=== PATIENT | female | born 1945 | race Caucasian/White ===

== ENCOUNTER 2017-12-26 12:06 | Outpatient (CLI) | payer MEDICARE ==
--- NOTE | 2017-12-26 13:21 | RAD ---
PA AND LATERAL VIEWS CHEST: HISTORY: Flu-like symptoms, cough, congestion, and fever. FINDINGS: There are changes of median sternotomy. The heart size is normal. The lungs are expanded without fo ruben areas of consolidation, pneumothorax, or pleural effusions. There are degenerative changes in th e spine. IMPRESSION: No radiographic evidence of acute cardiopulmonary process. POS: [facility]
== END 2017-12-26 12:07 | disposition home or self-care (01) ==
LOC: SCSRAD 12:06
PROVIDERS: ATTEND Family Medicine
DX: R68.89 Other general symptoms and signs (principal)
CPT/HCPCS: 71046

== ENCOUNTER 2018-03-07 08:10 | Inpatient (IN) | payer MEDICARE ==
[2018-03-07 08:32] LABS: #Eosinphils 0.1 thou/uL (0.0-0.7); #Lymphocytes 1.4 thou/uL (1.20-3.40); #Monocytes 0.6 thou/uL (0.11-0.59); #Neutrophils 7.2 thou/uL (1.40-6.50); %Basophils 0.5 % (0.0-1.0); %Eosinophils 0.8 % (0.0-10.0); %Lymphocytes 15.2 % (21.0-51.0); %Monocytes 6.1 % (0.0-10.0); %Neutrophils 77.5 % (42.0-75.0); Hemoglobin 13.1 g/dL (12.0-16.0); Mean Corpuscular HGB CONC 33.9 g/dL (32.0-36.0); Mean Corpuscular Volume 97.4 fL (78.0-98.0); Mean Platelet Volume 7.2 fL (7.4-10.4); Platelet Count 203 thou/uL (130-400); RBC Distribution Width 12.4 % (11.5-14.5); Red Blood Cell (RBC) Count 3.98 mill/uL (4.20-5.40); White Blood Cell (WBC) Count 9.3 thou/uL (4.8-10.8)
[2018-03-07] MEDS ORDERED: Ondansetron ODT 4 MG TAB ONE (08:34)
[2018-03-07] MEDS ORDERED: Nitroglycerin 2% Ointment 1 INCH/1 GM Packet ONE (08:37)
[2018-03-07 08:47] LABS: ALT (SGPT) 26 U/L (8-55); AST (SGOT) 34 U/L (5-34); Alkaline Phosphatase 54 U/L (40-150); Anion Gap 15 mmol/L (10-20); BUN (Urea Nitrogen) 22 mg/dL (9.8-20.1); Bilirubin, Total 0.6 mg/dL (0.2-1.2); Calc. Creatinine Clearance 0 mL/min (70-130); Calcium 10.4 mg/dL (7.8-10.44); Carbon Dioxide 26 mmol/L (23-31); Chloride 107 mmol/L (98-107); Estimated GFR-MDRD 48; Globulin 2.8 g/dL (2.4-3.5); Glucose 123 mg/dL (83-110); Potassium 4.6 mmol/L (3.5-5.1); Protein, Total 7.8 g/dL (6.0-8.3); Sodium 143 mmol/L (136-145)
[2018-03-07 08:51] LABS: Troponin I 0.111 ng/mL (< 0.028)
--- NOTE | 2018-03-07 09:47 | RAD ---
CHEST 1 VIEW: Date: 03/07/18 HISTORY: Irregular heartbeat. COMPARISON: 12/26/17. FINDINGS: Cardiac silhouette is magnified by projection. Pulmonary vasculature remains upper limits of normal. Mediastinum is midline with postoperative changes. No confluent air space consolidation or evidence o f pneumothorax. personnel monitor leads overlie the chest. IMPRESSION: Chronic-type findings are stable. No active cardiopulmonary abnormalities are demonstrated. POS: [facility]
[2018-03-07] MEDS ORDERED: Enoxaparin Sodium 80 MG/0.8 ML SYRINGE ONE (10:16)
--- NOTE | 2018-03-07 11:40 | CON ---
DATE OF CONSULTATION: 03/07/2018 REASON FOR CONSULTATION: Atrial fibrillation, rapid ventricular response. HISTORY OF PRESENT ILLNESS: Mrs. Sullivan is a very pleasant 72-year-old white female, patient of Dr. Andrew Kirk, who comes to the hospital for palpitations. She has woken up at midnight and noticed pa lpitations. She has had a history of paroxysmal atrial fibrillation. This is just the second episod e. She thought she had to wait it out. This morning, she remained in atrial fibrillation, so she de cided to come in for evaluation. She has since converted on her own back to sinus rhythm. She compl ained of some right shoulder pain as well, which she has had she tells me for the last week. It hurt s when she moves her shoulder, when she tries to reach on her back, when she tries to reach something with her right arm, it sounds like musculoskeletal pain. She denies any chest pain, tightness, pres sure. No shortness of breath. She has a significant cardiac history. She has had hypertrophic card iomyopathy, which was obstructive and required a septal myectomy. This was done in the year [address] Ian galvez in [place]. She did follow up with a nursing informatics analyst in [place] for a few years. She h as had stress testing before. At that time, she had this septal scar and defect consistent with her history of septal myectomy. She had a more recent stress test at Dr. Sears's office, her previous c ardiologist. This was in 2016 and it showed similar findings and no heart catheterization was done. This stress test was performed in the setting of having had her first admission for atrial fibrillat ion. At that time, she was recommended to be only on aspirin for stroke prophylaxis, which she has b een on ever since. On her last visit with Dr. Kirk, which was an establishment of care, there was some discussion about possibly doing full anticoagulation. She is still a little bit undecided yet; however, much more likely to agree to full anticoagulation now that she has had a second atrial fibri llation episode. PAST MEDICAL HISTORY: 1. Paroxysmal atrial fibrillation. 2. Hypertrophic cardiomyopathy, status post septal myectomy in the year 1999. 3. History of mitral valve regurgitation, status post mitral valve repair at the time of her myectom y. 4. No significant coronary artery disease at the time of her open heart surgery in the year 1999. 5. Gastroesophageal reflux disease with history of Mabriz's esophagus. 6. Irritable bowel syndrome. 7. Celiac disease. 8. Heat stroke in 1977. 9. Hypertension. 10. Hyperlipidemia. PAST SURGICAL HISTORY: 1. Cholecystectomy, 1972. 2. Septal myectomy and mitral valve repair in the year 1999. 3. Low back surgery in 1976. 4. Colonoscopy in 2009 with biopsies. FAMILY HISTORY: Father had sudden cardiac , unknown issue. Mother of cancer. Sisters had lung cancer. SOCIAL HISTORY: No alcohol, no tobacco or drugs. She is with 2 kids. OUTPATIENT MEDICATIONS: 1. Tylenol p.r.n. 2. Aspirin 325 a day. 3. Clindamycin. 4. Cranberry juice or pills. 5. Famotidine 20 mg twice a day. 6. Fluticasone nasal spray. 7. Metoprolol succinate 50 mg daily. 8. Olmesartan 40 mg a day. 9. Simvastatin 20 mg a day. 10. Spironolactone 25 mg a day. 11. Xyzal 5 mg a day. ALLERGIES: 1. CEPHALEXIN, causes a rash. 2. CODEINE. 3. LATEX, causes a rash. 4. OPIOIDS like MORPHINE, causes nausea. REVIEW OF SYSTEMS: A 12-point review of systems was done and is all negative unless stated in the hi story of present illness. PHYSICAL EXAMINATION: VITAL SIGNS: Heart rate of 72, blood pressure 128/68, respiratory rate 20, satting 98% on 2 liters n eli cannula. GENERAL: Awake, alert, and oriented x3, in no distress. HEENT: Normocephalic, atraumatic. NECK: Supple. LUNGS: Clear. CARDIOVASCULAR: S1 and S2, no S3 or S4. There is a grade 2/6 systolic murmur right upper sternal adelita rder and a holosystolic murmur at the apex, grade 3/6. ABDOMEN: Soft, positive bowel sounds. EXTREMITIES: No edema. SKIN: Warm and dry. LABORATORY WORK: Reviewed. CMP is unremarkable except for a BUN of 22, creatinine 1.12, which is cl ose to her baseline. Glucose is 123. Albumin is 5.0. Troponin initially was 0.11 with a CK-MB of 3 .0. CBC also unremarkable. Hemoglobin 13, hematocrit 38, platelet count 203. EKGs were reviewed. She has got a left bundle branch block, which is an old finding. ASSESSMENT AND PLAN: 1. Atrial fibrillation with rapid ventricular response: Paroxysmal in nature. Her CHADS-VASc score is 3 and we would recommend full anticoagulation for stroke prophylaxis. She states she is very sen sitive to medications, but may be in agreement now that she has had a very long episode of atrial fib rillation. This is the first time it has been for hours. 2. Chest pain: She does not have chest pain. She actually has right scapular pain, which is only w hen she moves her right shoulder. This is most likely musculoskeletal in nature and has been going o n for the last week. Continue to trend troponins to make sure she does not have any significant elev ation, but no plans for any intervention at this time. 3. Left bundle branch block: Underlying an old finding. Continue to monitor on telemetry. 4. Hypertrophic cardiomyopathy: Last echocardiogram was in 2017 late. She had a very stable lookin g echocardiogram with normal ejection fraction with no evidence of subaortic stenosis. 5. Multivalvular regurgitation: She has got moderate AI, moderate MR. Echocardiogram for evaluatio n of this. Thank you for letting us to participate in the care of your patient. Dr. Kirk, her primary cardiol ogist, will follow up in the morning.
[2018-03-07] MEDS ORDERED: Ondansetron HCl/PF 4 MG/2 ML Vial IVP PRN (13:49)
[2018-03-07] MEDS ORDERED: Ondansetron ODT 4 MG TAB SL PRN (13:49)
[2018-03-07 14:33] VITALS: BMI 32.8
[2018-03-07] MEDS ORDERED: Ondansetron ODT 4 MG TAB PO PRN (14:40)
[2018-03-07 15:39] LABS: Troponin I 0.414 ng/mL (< 0.028)
[2018-03-07 21:13] LABS: Troponin I 0.434 ng/mL (< 0.028)
--- NOTE | 2018-03-08 04:08 | HP ---
HISTORY OF PRESENT ILLNESS: This patient is a 72-year-old female, [facility] The patient reported that she was having some unusual sensation that ultimately felt like palpitations. It started the evening before, but she felt like she was aware of what this was and fe lt like it was not too dangerous to wait it out. When she woke today and her symptoms persisted, she decided to present to the emergency department. During her evaluation in the emergency department, patient was noted to be in atrial fibrillation, converted to sinus rhythm during the evaluation. She has subsequently felt back at her baseline. She denies any specific chest pain, although she has lazo d some musculoskeletal-type symptoms. REVIEW OF SYSTEMS: A 11-point review of systems notable for the above-mentioned musculoskeletal symp toms, primarily in the right shoulder and back area. She described this as present for about 1 week and feeling sharp in nature. Otherwise, negative. She specifically denied any chest pain, shortness of breath, cough, or GI-related symptoms. PAST MEDICAL HISTORY: Notable for hypertrophic obstructive cardiomyopathy, status post debulking pro cedure; atrial fibrillation; irritable bowel syndrome. The patient reports that she is "borderline i ncluding sensory neuropathy, Fuchs disease of the eyes, and hypertension. PAST SURGICAL HISTORY: Debulking procedure of the cardiac muscle with Dr. Santiago Sosa in [place]. FAMILY HISTORY: Notable for cancer. SOCIAL HISTORY: Nonsmoker, nondrinker. MEDICATIONS: Metoprolol 50 mg every day, Aldactone 25 mg p.o. daily, aspirin, valsartan, famotidine, simvastatin, Estrace, clobetasol, and cranberry supplements. ALLERGIES: CODEINE, MORPHINE, KEFLEX, PENICILLIN. PHYSICAL EXAMINATION: VITAL SIGNS: BP 133/66, O2 sat 94% on room air, heart rate 62, respirations 21, temperature 98.6. GENERAL APPEARANCE: Age-appropriate female, in no distress. Awake, alert, oriented, pleasant, coope rative. HEART: Regular rate and rhythm without murmurs, gallops, or rubs. LUNGS: Clear to auscultation bilaterally with good chest wall expansion. No air exchange. ABDOMEN: Flat, soft, nontender, nondistended, positive bowel sounds, no masses, no organomegaly. SKIN: Warm and dry. LABORATORY DATA: White count 9.3, hemoglobin 13.1, platelets 203. BUN 22, creatinine 1.11, troponin 0.111. ASSESSMENT AND PLAN: 1. Atrial fibrillation with rapid ventricular response, resolved to sinus rhythm. Cardiology has se en the patient. We will continue to trend the patient's troponins and keep her on security monitor. The patient has had histories of atrial fibrillation in the past, but has typically avoided anticoa gulation, but is willing to consider moving forward with that at this time. 2. History of chronic underlying left bundle branch block that has been present since her debulking procedure for the hypertrophic obstructive cardiomyopathy. The patient will follow up with her [facility] screen printing equipment setter in the hospital tomorrow with Dr. Kirk. 3. Hypertension. We will continue patient's usual home regimen. 4. Chronic irritable bowel syndrome. The patient is typically on Imodium, but does not like to take this. We will hold them off for now. 5. History of hyperlipidemia. We will continue with the simvastatin.
[2018-03-08] MEDS ORDERED: hydrALAZINE 25 MG TAB PO PRN (09:45)
--- NOTE | 2018-03-08 18:19 | PDOC.CTH ---
Cardiology Progress Note - Subjective She is doing well. No chest pain, tightness, pressure,. SOB. Her echo shows increased velocities through aortic vlave but not LVOT with possible , also has moderate AI and moderate MR. - Objective Vital Signs Temp Pulse Resp BP BP Pulse Ox 03/08/18 15:35 98.4 F 55 L 16 112/56 L 95 03/08/18 12:10 98.1 F 63 16 130/61 97 03/08/18 08:10 98.1 F 49 L 18 144/65 H 95 Weight 185 lb 4.8 oz 03/07/18 03/08/18 03/09/18 06:59 06:59 06:59 Intake Total 1320 237 Output Total 1675 Balance -355 237 - Physical Examination General/Neuro: alert & oriented x3, NAD Neck: no JVD present Lungs: CTA, unlabored respirations Heart: RRR Abdomen: NT/ND Extremities: other: (no edema.) - Telemetry Telemetry Rhythm: NSR - Labs Result Diagrams: 03/07/18 08:21 03/07/18 08:21 Troponin/CKMB CK-MB (CK-2) 3.0 ng/mL (0-6.6) 03/07/18 08:21 Troponin I 0.434 ng/mL (< 0.028) H* 03/07/18 20:32 - Assessment/Plan 1. NSTEMI 2. Afib RVR, paroxysmal 3. HCM s/p septal myectomy in 2002 4. Moderate to severe MR with TADEO 5. Moderate AI, possible . PLAN: - Will need right and left heart cath to evaluate amount of , valve does not seem severe but measurements are quite high across valve but not across LVOT. My suspicion is sample of CW through aortic valve includes MR jet. - I spoke with her about risks and benefits of procedure included but not limited to stroke, ND , , bleeding and need for blood transfusion, limb loss, organ loss, she understands and verbalizes understanding of this and agrees to proceed.
[2018-03-08] MEDS ORDERED: Communication Order-Pharmacy FS SCH (18:30)
--- NOTE | 2018-03-08 19:45 | PDOC.PN ---
- Subjective Encounter Start Date: 03/08/18 Encounter Start Time: 14:00 Doing well. Remains asymptomatic. Ambulating. Has a fair amount of blood oozing from the lovenox injection site. - Objective Resuscitation Status: Resuscitation Status FULL:Full Resuscitation Vital Signs & Weight: Vital Signs (12 hours) Temp Pulse Resp BP BP Pulse Ox 03/08/18 15:35 98.4 F 55 L 16 112/56 L 95 03/08/18 12:10 98.1 F 63 16 130/61 97 03/08/18 08:10 98.1 F 49 L 18 144/65 H 95 Weight Weight 185 lb 4.8 oz I&O: 03/07/18 03/08/18 03/09/18 06:59 06:59 06:59 Intake Total 1320 957 Output Total 1675 400 Balance -355 557 Result Diagrams: 03/07/18 08:21 03/07/18 08:21 Phys Exam - Physical Examination Constitutional: NAD HEENT: PERRLA, oral pharynx no lesions Respiratory: no wheezing, no rales, no rhonchi, clear to auscultation bilateral Cardiovascular: RRR Holosystolic M Gastrointestinal: soft, non-tender, no distention, positive bowel sounds Musculoskeletal: no edema Dx/Plan (1) Atrial fibrillation Code(s): I48.91 - UNSPECIFIED ATRIAL FIBRILLATION Status: Acute (2) HOCM (hypertrophic obstructive cardiomyopathy) Code(s): I42.1 - OBSTRUCTIVE HYPERTROPHIC CARDIOMYOPATHY Status: Acute (3) NSTEMI (non-ST elevated myocardial infarction) Code(s): I21.4 - NON-ST ELEVATION (NSTEMI) MYOCARDIAL INFARCTION Status: Acute (4) CKD (chronic kidney disease) stage 3, GFR 30-59 ml/min Code(s): N18.3 - CHRONIC KIDNEY DISEASE, STAGE 3 (MODERATE) Status: Acute - Plan * She has remained asymptomatic since her initial conversion back to sinus. She has several abnormalities on her echo, including the concern for HOCM related issues. She will stay and have full evaluation per cardiology. Will recheck her labs in a.m. * Discussed the anticoagulation. She does not want to pursue that based upon the bleeding she experienced with the lovenox.
[2018-03-08] MEDS: Loperamide HCl 2 MG CAP PO PRN (20:24)
[2018-03-08] MEDS: Atorvastatin Calcium 10 MG TAB PO SCH (20:24)
[2018-03-08] MEDS: Sodium Chloride 0.9% 1,000 ML IV SCH (23:57)
[2018-03-09 05:45] LABS: #Eosinphils 0.2 thou/uL (0.0-0.7); #Lymphocytes 1.3 thou/uL (1.20-3.40); #Monocytes 0.5 thou/uL (0.11-0.59); %Basophils 0.7 % (0.0-1.0); %Eosinophils 3.1 % (0.0-10.0); %Lymphocytes 21.9 % (21.0-51.0); %Monocytes 8.3 % (0.0-10.0); Hemoglobin 11.2 g/dL (12.0-16.0); Mean Corpuscular HGB CONC 34.9 g/dL (32.0-36.0); Mean Corpuscular Volume 97.4 fL (78.0-98.0); Mean Platelet Volume 7.1 fL (7.4-10.4); Platelet Count 147 thou/uL (130-400); RBC Distribution Width 12.3 % (11.5-14.5); Red Blood Cell (RBC) Count 3.31 mill/uL (4.20-5.40)
[2018-03-09 05:55] LABS: Anion Gap 11 mmol/L (10-20); BUN (Urea Nitrogen) 18 mg/dL (9.8-20.1); Calc. Creatinine Clearance 75 mL/min (70-130); Calcium 9.5 mg/dL (7.8-10.44); Carbon Dioxide 26 mmol/L (23-31); Chloride 109 mmol/L (98-107); Estimated GFR-MDRD 62; Glucose 105 mg/dL (83-110); Sodium 142 mmol/L (136-145)
[2018-03-09] MEDS: Famotidine 20 MG TAB PO SCH (06:36)
[2018-03-09] MEDS: Spironolactone 25 MG TAB PO SCH (06:37)
[2018-03-09] MEDS ORDERED: Lidocaine 1% (PF) 30 ML VIAL ONE (09:00)
[2018-03-09] MEDS ORDERED: Aspirin 325 mg Enteric Coated Tablet PO SCH ×3 (09:00→12:45)
[2018-03-09] MEDS ORDERED: Valsartan 80 MG TAB PO SCH (09:00)
[2018-03-09] MEDS ORDERED: Fentanyl 100 MCG/2 ML VIAL ONE (10:52)
[2018-03-09] MEDS ORDERED: Midazolam HCl 2 mg/2 ml Vial ONE (10:52)
[2018-03-09] MEDS ORDERED: Heparin 10,000 UNITS/1 ML VIAL ONE (11:37)
[2018-03-09] MEDS ORDERED: traMADol HCl 50 MG TAB PO PRN (11:57)
[2018-03-09] MEDS ORDERED: Acetaminophen/Codeine 30-300mg Tablet PO PRN (11:57)
[2018-03-09] MEDS ORDERED: Sodium Chloride 0.9% 200 ML IV SCH (12:00)
[2018-03-09] MEDS ORDERED: Sodium Chloride 0.9% 1,000 ML IV SCH (12:00)
[2018-03-09] MEDS ORDERED: Aspirin 81 mg Enteric Coated Tablet PO SCH (12:45)
[2018-03-09] MEDS ORDERED: Iopamidol 370 76% 100 ML VIAL ONE (12:46)
--- NOTE | 2018-03-09 13:37 | PDOC.PN ---
- Subjective Encounter Start Date: 03/09/18 Encounter Start Time: 09:00 Doing generally well. No specific complaints. A little anxious about the cath. - Objective Resuscitation Status: Resuscitation Status FULL:Full Resuscitation Vital Signs & Weight: Vital Signs (12 hours) Temp Pulse Resp BP Pulse Ox 03/09/18 07:35 98.2 F 67 20 172/75 H 96 03/09/18 04:00 98 F 62 18 159/60 H Weight Weight 185 lb 4.8 oz I&O: 03/08/18 03/09/18 03/10/18 06:59 06:59 06:59 Intake Total 1320 2037 Output Total 1675 800 Balance -355 1237 Result Diagrams: 03/09/18 05:17 03/09/18 05:17 Phys Exam - Physical Examination Constitutional: NAD Respiratory: no wheezing, no rales, no rhonchi, clear to auscultation bilateral Cardiovascular: RRR, no significant murmur Gastrointestinal: soft, non-tender, no distention, positive bowel sounds Musculoskeletal: no edema Psychiatric: normal affect, A&O x 3 Skin: normal turgor Dx/Plan (1) Atrial fibrillation Code(s): I48.91 - UNSPECIFIED ATRIAL FIBRILLATION Status: Acute Comment: PAF. Had some bleeding from a lovenox injection site and is not interested in pursuing anticoagulation now. (2) HOCM (hypertrophic obstructive cardiomyopathy) Code(s): I42.1 - OBSTRUCTIVE HYPERTROPHIC CARDIOMYOPATHY Status: Acute Comment: Clarification on cath today. (3) NSTEMI (non-ST elevated myocardial infarction) Code(s): I21.4 - NON-ST ELEVATION (NSTEMI) MYOCARDIAL INFARCTION Status: Acute Comment: Cath today. (4) CKD (chronic kidney disease) stage 3, GFR 30-59 ml/min Code(s): N18.3 - CHRONIC KIDNEY DISEASE, STAGE 3 (MODERATE) Status: Acute Comment: Stable - Plan * Follow up after cath today.
[2018-03-09] MEDS: Acetaminophen 325 MG TAB PO PRN (14:09)
--- NOTE | 2018-03-09 17:18 | PDOC.CTH ---
Cardiology Progress Note - Subjective She had her Right and left heart cath. She had a hard time achieving hemostasis. - Objective Vital Signs Temp Pulse Resp BP Pulse Ox 03/09/18 08:00 98.2 F 67 20 96 03/09/18 07:35 98.2 F 67 20 172/75 H 96 Weight 185 lb 4.8 oz 03/08/18 03/09/18 03/10/18 06:59 06:59 06:59 Intake Total 1320 2037 Output Total 1675 800 Balance -355 1237 - Physical Examination General/Neuro: alert & oriented x3, NAD Neck: no JVD present Lungs: CTA, unlabored respirations Heart: RRR Abdomen: NT/ND Extremities: other: (no edema.) - Telemetry Telemetry Rhythm: NSR - Labs Result Diagrams: 03/09/18 05:17 03/09/18 05:17 Troponin/CKMB CK-MB (CK-2) 3.0 ng/mL (0-6.6) 03/07/18 08:21 Troponin I 0.434 ng/mL (< 0.028) H* 03/07/18 20:32 - Assessment/Plan 1. NSTEMI, demand ischemia. 2. Afib RVR, paroxysmal 3. HCM s/p septal myectomy in 2002 4. Moderate to severe MR with TADEO 5. Moderate AI, 6. No 7. Significant sub aortic LVOT gradient. PLAN: - [facility] [place] findings suggestive of elevated LVOT pressure gradients above 60 mmHg. - Aortic valve without gradient at all once catheter past LVOT all gradients disappeared before crossing aortic valve. - She has moderate to severe MR with TADEO likely from LVOT pressures but she is not symptomatic from this except for developing afib. - Will recommend she start full anticoagulation with Xarelto at 20 mg daily. - Would hold starting this until 3 days after discharge.
[2018-03-09] MEDS: Sodium Chloride 0.9% 1,000 ML IV SCH (19:29)
[2018-03-09] MEDS ORDERED: Estradiol 0.01% Vaginal Cream 42.5 gm Tube VAG SCH (21:00)
[2018-03-09] MEDS: Atorvastatin Calcium 10 MG TAB PO SCH (21:34)
[2018-03-09] MEDS: Loperamide HCl 2 MG CAP PO PRN (21:44)
[2018-03-10 07:45] LABS: #Eosinphils 0.1 thou/uL (0.0-0.7); #Monocytes 0.5 thou/uL (0.11-0.59); #Neutrophils 5.3 thou/uL (1.40-6.50); %Basophils 0.5 % (0.0-1.0); %Lymphocytes 14.7 % (21.0-51.0); %Monocytes 7.7 % (0.0-10.0); %Neutrophils 75.2 % (42.0-75.0); Hemoglobin 9.6 g/dL (12.0-16.0); Mean Corpuscular HGB CONC 34.8 g/dL (32.0-36.0); Mean Corpuscular Hemoglobin 33.7 pg (27.0-31.0); Mean Corpuscular Volume 96.9 fL (78.0-98.0); Mean Platelet Volume 6.8 fL (7.4-10.4); Platelet Count 139 thou/uL (130-400); RBC Distribution Width 12.4 % (11.5-14.5); Red Blood Cell (RBC) Count 2.86 mill/uL (4.20-5.40)
[2018-03-10 08:18] VITALS: BP 129/59; TEMP 98.1
[2018-03-10] MEDS ORDERED: Rivaroxaban 10 MG TAB PO SCH (09:00)
[2018-03-10] MEDS ORDERED: Aspirin 81 mg Enteric Coated Tablet PO SCH (09:00)
[2018-03-10] MEDS: Spironolactone 25 MG TAB PO SCH (09:45)
[2018-03-10] MEDS: Famotidine 20 MG TAB PO SCH (09:46)
[2018-03-10] MEDS: Acetaminophen 325 MG TAB PO PRN (09:49)
--- NOTE | 2018-03-10 12:03 | ULT ---
FOCUSED VASCULAR ULTRASOUND OF THE RIGHT INGUINAL REGION: DATE: 03/10/18. COMPARISON: None. HISTORY: Hematoma of the right inguinal region following catheterization, assess for pseudoaneurysm formation. TECHNIQUE: Multiplanar, gonzales scale sonographic imaging of the vascular structures of the right inguinal region o btained with color flow and spectral analysis. FINDINGS: There is an oblong heterogeneously hypoechoic collection deep within the subcutaneous fat in the righ t inguinal region suggesting hematoma, measuring 6.4 x 1.0 x 4.7 cm. The right common femoral vein and right common femoral artery are patent and demonstrate appropriate venous and arterial waveforms respectively. There is no sonographic evidence for pseudoaneurysm. IMPRESSION: Findings suggesting a right inguinal hematoma with no sonographic evidence of a pseudoaneurysm. POS: [facility]
--- NOTE | 2018-03-10 19:25 | PRG ---
DATE OF SERVICE: 03/10/2018 SUBJECTIVE: Ms. Sullivan is doing well today, no complaints. OBJECTIVE: VITAL SIGNS: Blood pressure 129/59, pulse 56 and regular. LUNGS: Clear. CARDIAC: Normal S1, normal S2. ABDOMEN: Soft, nontender. EXTREMITIES: There is a lot of ecchymosis in the right groin. Because of this, ultrasound was done of the right groin which showed no pseudoaneurysm. ASSESSMENT: 1. Hypertrophic obstructive cardiomyopathy. 2. Paroxysmal atrial fibrillation. 3. No obstructive coronary disease. 4. No evidence of pseudoaneurysm. 5. The patient did have a decrease in hemoglobin from 13.1 to 9.6. 6. Paroxysmal atrial fibrillation. PLAN: 1. We will need to stay off anticoagulation at this point. 2. Consideration for anticoagulation as an outpatient. We will wait to the hematoma is resolved. 3. She is on metoprolol 25 mg a day. 4. Aspirin was discontinued. 5. Atorvastatin. 6. She is on spironolactone. 7. Follow up in the office. Consider Multaq. She did have atrial fibrillation with a rapid rate of 130, also a left bundle branch block pattern on the electrocardiogram. The patient did have a mild bradycardia here in the hospital with a 2.1 second pause, which is certainly not long enough to justi fy pacemaker insertion.
--- NOTE | 2018-03-13 01:01 | DIS ---
DATE OF ADMISSION: 03/07/2018 DATE OF DISCHARGE: 03/10/2018 DISCHARGE DIAGNOSES: 1. Atrial fibrillation with rapid ventricular response. 2. History of hypertrophic obstructive cardiomyopathy with history of debulking procedure. 3. History of chronic left bundle branch block. 4. Hypertension. 5. Chronic irritable bowel syndrome. 6. History of hyperlipidemia. 7. Elevated troponins, possible with non-Q-wave myocardial infarction. HISTORY OF PRESENT ILLNESS: This patient is a 72-year-old female with a history of hypertrophic card iomyopathy and a history of debulking procedure. She also had a history of atrial fibrillation, whic h was paroxysmal. The patient had not been on routine anticoagulation other than aspirin. She had b een reluctant to do so given the fact that she tended to bleed fairly easily just with aspirin therap y. The patient had noted some palpitations the night before admission. She felt like this was relat ed to atrial fibrillation, but felt it was stable enough that she could wait. The following day when it had not resolved, she presented to the emergency department. There, the patient was noted to be in atrial fibrillation with a rapid ventricular response. However, during her evaluation there, she was converted to sinus rhythm without any further interventions. HOSPITAL COURSE: The patient had slight elevations in her troponins and she was placed in the hospit al for further observation. In an inpatient status, Cardiology was consulted and felt the patient lazo d a non-Q-wave AZ based on her elevated troponins. They also noted the [id number] MR and mod erate AI. Recommended heart catheterization. The patient also had an echocardiogram performed, ic h showed an ejection fraction of 60-65% with grade 2/3 diastolic dysfunction and a moderately dilated left atrium and [id number] mitral regurgitation. She did have elevated right ventricular sy stolic pressures at 48. Moderate aortic regurgitation and hemodynamic measurements suggestive of inc reased velocity through the aortic valve with the mean gradient of 56 mmHg and a max velocity over 5 meters per second. This was not consistent with the visualization of the valve and was felt to be po ssibly related to outflow obstruction. Subsequently, the patient did undergo heart catheterization, which revealed 40% mid LAD lesion, 50% ostial diagonal 1 lesion, normal right-sided pressures with mi ldly increased wedge pressure, elevated LV pressures, and [id number]-[id number] gradient above 60, was felt th at increased gradients were likely related to the subaortic stenosis from the hypertrophic cardiomyop athy. Recommendation was for continued beta blockers for the HCM and to fully anticoagulate the kan ent for atrial fibrillation. However, subsequent to the catheterization, the patient had significant oozing and hematoma at the sheath. This was subsequently expressed to some degree and pressure main tained. The following day, the patient had stable hemoglobin. An ultrasound showed evidence of kina cayden, but no pseudoaneurysm. The patient had remained otherwise asymptomatic. Given the hematoma is katie; however, discussed case with the patient and Dr. Kirk and ultimately agreed to keep the patien t off anticoagulation for the time being. PHYSICAL EXAMINATION: VITAL SIGNS: On the day of discharge, temperature was 98.1, pulse 56, respirations 20, O2 sat was 96 % on room air, BP was 129/59. GENERAL: Awake, alert, oriented, pleasant, cooperative. HEART: Regular with 2/6 holosystolic murmur. LUNGS: Clear bilaterally. ABDOMEN: Soft, nontender. Right groin area revealed a large ecchymotic area with some hematoma pres ent. LABORATORY DATA: Hemoglobin was 9.6. DISPOSITION: The patient is discharged to home. ACTIVITY: As tolerated. DIET: To be on a heart-healthy diet. DISCHARGE MEDICATIONS: Include estradiol vaginal cream 1 gram vaginally 2 times a week, Zocor 20 mg at bedtime, Pepcid 20 mg every day, Aldactone 12.5 mg every day, aspirin 325 mg every day, metoprolol 25 mg every day, loperamide p.r.n., align 4 mg every day, hydralazine 50 mg as directed, olmesartan 40 mg p.o. daily. The patient is to follow up with Dr. Kirk as an outpatient in 2 weeks. She shou ld follow up with her PCP as well. She should return to the emergency department should she have any problems prior to follow up.
== END 2018-03-10 18:40 | disposition home or self-care (01) | DRG 281 ==
LOC: ERS 08:10 → INTOOBSV 12:21 → OBSVTOIN 12:21 → 2NO 12:21
PROVIDERS: ADMIT Internal Medicine; ATTEND Internal Medicine
PROC: 4A023N8 Measurement of Cardiac Sampling and Pressure, Bilateral, Percutaneous Approach (ICD-10-PCS; principal; 2018-03-09)
PROC: B215YZZ Fluoroscopy of Left Heart using Other Contrast (ICD-10-PCS; 2018-03-09)
PROC: B211YZZ Fluoroscopy of Multiple Coronary Arteries using Other Contrast (ICD-10-PCS; 2018-03-09)
DX: I48.0 Paroxysmal atrial fibrillation (principal); I21.A1 Myocardial infarction type 2; I97.610 Postprocedural hemorrhage of a circulatory system organ or structure following a cardiac catheterization; K21.9 Gastro-esophageal reflux disease without esophagitis; F41.9 Anxiety disorder, unspecified; I42.1 Obstructive hypertrophic cardiomyopathy; I44.7 Left bundle-branch block, unspecified; M25.511 Pain in right shoulder; I08.0 Rheumatic disorders of both mitral and aortic valves; I25.10 Atherosclerotic heart disease of native coronary artery without angina pectoris; K58.9 Irritable bowel syndrome, unspecified; H18.51 Endothelial corneal dystrophy; N18.3 Chronic kidney disease, stage 3 (moderate); Y84.0 Cardiac catheterization as the cause of abnormal reaction of the patient, or of later complication, without mention of misadventure at the time of the procedure; I12.9 Hypertensive chronic kidney disease with stage 1 through stage 4 chronic kidney disease, or unspecified chronic kidney disease; K22.70 Barrett's esophagus without dysplasia; E78.5 Hyperlipidemia, unspecified; K90.0 Celiac disease; G62.9 Polyneuropathy, unspecified; Z88.1 Allergy status to other antibiotic agents; Z88.5 Allergy status to narcotic agent; Z88.0 Allergy status to penicillin; Z87.891 Personal history of nicotine dependence; Z90.49 Acquired absence of other specified parts of digestive tract; Z79.899 Other long term (current) drug therapy; Z79.82 Long term (current) use of aspirin; Z79.890 Hormone replacement therapy; Z82.41 Family history of sudden cardiac death; Z80.1 Family history of malignant neoplasm of trachea, bronchus and lung; Z80.9 Family history of malignant neoplasm, unspecified; Z79.51 Long term (current) use of inhaled steroids; Z91.040 Latex allergy status
CPT/HCPCS: 36415; 71045; 76700; 80048; 80053; 82553; 84484; 85025; 93005; 93306; 93460; 93561; 93567; 96360; 96372; 99152; 99153; A4216; C1769; J1644; J1650; J2001; J2250; J3010; Q0162

== ENCOUNTER 2022-04-22 11:36 | Outpatient (CLI) | payer MEDICARE ==
[2022-04-22 13:04] LABS: #Basophils 0.1 10x3/uL (0.0-0.2); #Eosinphils 0.1 10x3/uL (0.0-0.5); #Monocytes 0.6 10x3/uL (0.0-1.1); #Neutrophils 5.8 10x3/uL (1.5-8.4); %Basophils 0.8 % (0.0-2.0); %Eosinophils 1.6 % (0.0-6.0); %Lymphocytes 9.8 % (18.0-47.0); %Neutrophils 79.4 % (40.0-75.0); Hemoglobin 12.2 g/dL (12.0-15.5); Mean Corpuscular HGB CONC 34.3 g/dL (32.0-36.0); Mean Corpuscular Hemoglobin 33.2 pg (27.0-33.0); Mean Corpuscular Volume 96.7 fl (81.6-98.3); Mean Platelet Volume 10.2 fl (7.4-10.4); Platelet Count 196 10x3/uL (150-450); RBC Distribution Width 12.9 % (11.5-14.5); Red Blood Cell (RBC) Count 3.68 10x6/uL (3.90-5.03); White Blood Cell (WBC) Count 7.4 10x3/uL (3.5-10.5)
[2022-04-22 13:19] LABS: Anion Gap 13 mmol/L (10-20); BUN (Urea Nitrogen) 52 mg/dL (9.8-20.1); Calc. Creatinine Clearance 0 mL/min (70-130); Carbon Dioxide 27 mmol/L (23-31); Chloride 103 mmol/L (98-107); Potassium 4.7 mmol/L (3.5-5.1); Sodium 138 mmol/L (136-145)
[2022-04-22 13:20] LABS: Calcium 9.9 mg/dL (7.8-10.44); Estimated GFR 37; Glucose 82 mg/dL (83-110)
== END 2022-04-22 11:37 | disposition home or self-care (01) ==
LOC: LABBT 11:36
PROVIDERS: ATTEND Specialist
DX: Z01.818 Encounter for other preprocedural examination (principal); D17.1 Benign lipomatous neoplasm of skin and subcutaneous tissue of trunk; Z20.822 Contact with and (suspected) exposure to COVID-19
CPT/HCPCS: 80048; 85025; 87811; 93005; 93010

== ENCOUNTER 2022-05-15 18:59 | Emergency (ER) | payer MEDICARE ==
[2022-05-15] MEDS ORDERED: Metoprolol Tartrate 5 MG/5 ML VIAL ONE (19:29)
[2022-05-15 19:48] LABS: #Eosinphils 0.1 thou/uL (0.0-0.7); #Lymphocytes 1.1 thou/uL (1.20-3.40); #Monocytes 0.7 thou/uL (0.11-0.59); #Neutrophils 5.4 thou/uL (1.40-6.50); %Basophils 0.5 % (0.0-1.0); %Lymphocytes 14.3 % (21.0-51.0); %Monocytes 9.7 % (0.0-10.0); %Neutrophils 73.5 % (42.0-75.0); Hemoglobin 11.7 g/dL (12.0-16.0); Mean Corpuscular HGB CONC 33.9 g/dL (32.0-36.0); Mean Corpuscular Hemoglobin 34.3 pg (27.0-31.0); Mean Platelet Volume 7.6 fL (7.4-10.4); Platelet Count 185 thou/uL (130-400); RBC Distribution Width 11.8 % (11.5-14.5); White Blood Cell (WBC) Count 7.3 thou/uL (4.8-10.8)
[2022-05-15 20:48] LABS: ALT (SGPT) 18 U/L (8-55); AST (SGOT) 30 U/L (5-34); Albumin 4.3 g/dL (3.4-4.8); Alkaline Phosphatase 52 U/L (40-110); Anion Gap 16 mmol/L (10-20); BUN (Urea Nitrogen) 38 mg/dL (9.8-20.1); Bilirubin, Total 0.8 mg/dL (0.2-1.2); Calc. Creatinine Clearance 0 mL/min (70-130); Calcium 9.5 mg/dL (7.8-10.44); Carbon Dioxide 23 mmol/L (23-31); Chloride 105 mmol/L (98-107); Estimated GFR 36; Globulin 2.6 g/dL (2.4-3.5); Glucose 98 mg/dL (83-110); Potassium 4.8 mmol/L (3.5-5.1); Protein, Total 6.9 g/dL (5.8-8.1); Sodium 139 mmol/L (136-145)
== END 2022-05-15 22:27 | disposition home or self-care (01) ==
LOC: ERS 18:59
DX: I48.91 Unspecified atrial fibrillation (principal); I10 Essential (primary) hypertension; K21.9 Gastro-esophageal reflux disease without esophagitis; Z87.891 Personal history of nicotine dependence; Z79.01 Long term (current) use of anticoagulants; Z79.899 Other long term (current) drug therapy
CPT/HCPCS: 71045; 80053; 83880; 84484; 85025; 93005; 96374

== ENCOUNTER 2022-10-12 09:16 | Outpatient (CLI) | payer MEDICARE ==
[2022-10-12 10:19] LABS: #Basophils 0.1 10x3/uL (0.0-0.2); #Eosinphils 0.2 10x3/uL (0.0-0.5); #Monocytes 0.6 10x3/uL (0.0-1.1); #Neutrophils 4.9 10x3/uL (1.5-8.4); %Basophils 0.9 % (0.0-2.0); %Eosinophils 3.3 % (0.0-6.0); %Lymphocytes 13.1 % (18.0-47.0); %Monocytes 9.4 % (0.0-10.0); %Neutrophils 73.1 % (40.0-75.0); Hemoglobin 12.9 g/dL (12.0-15.5); Mean Corpuscular HGB CONC 33.3 g/dL (32.0-36.0); Mean Corpuscular Hemoglobin 33.2 pg (27.0-33.0); Mean Corpuscular Volume 99.5 fl (81.6-98.3); Mean Platelet Volume 9.7 fl (7.4-10.4); Platelet Count 224 10x3/uL (150-450); RBC Distribution Width 13.7 % (11.5-14.5); Red Blood Cell (RBC) Count 3.89 10x6/uL (3.90-5.03); White Blood Cell (WBC) Count 6.6 10x3/uL (3.5-10.5)
[2022-10-12 10:20] LABS: Anion Gap 12 mmol/L (10-20); BUN (Urea Nitrogen) 17 mg/dL (9.8-20.1); Calc. Creatinine Clearance 0 mL/min (70-130); Calcium 9.7 mg/dL (7.8-10.44); Carbon Dioxide 25 mmol/L (23-31); Chloride 108 mmol/L (98-107); Estimated GFR 39; Glucose 94 mg/dL (83-110); Potassium 4.4 mmol/L (3.5-5.1); Sodium 141 mmol/L (136-145)
== END 2022-10-12 09:17 | disposition home or self-care (01) ==
LOC: LABBT 09:16
PROVIDERS: ATTEND Internal Medicine Cardiovascular Disease
DX: Z01.812 Encounter for preprocedural laboratory examination (principal); I48.0 Paroxysmal atrial fibrillation
CPT/HCPCS: 80048; 85025

== ENCOUNTER 2022-10-14 05:47 | Day surgery (SDC) | payer MEDICARE ==
[2022-10-12 14:08] VITALS: BMI 28.3
[2022-10-14] MEDS ORDERED: PROPOFOL 20 ML ONE (07:15)
== END 2022-10-14 08:49 | disposition home or self-care (01) ==
LOC: SDC 05:47
PROVIDERS: ATTEND Internal Medicine Cardiovascular Disease
PROC: 5A2204Z Restoration of Cardiac Rhythm, Single (ICD-10-PCS; principal; 2022-10-14)
DX: I48.19 Other persistent atrial fibrillation (principal); K21.9 Gastro-esophageal reflux disease without esophagitis; E78.00 Pure hypercholesterolemia, unspecified; I10 Essential (primary) hypertension; E73.9 Lactose intolerance, unspecified; I25.10 Atherosclerotic heart disease of native coronary artery without angina pectoris; I42.2 Other hypertrophic cardiomyopathy; I44.7 Left bundle-branch block, unspecified; I08.2 Rheumatic disorders of both aortic and tricuspid valves; Z86.16 Personal history of COVID-19; Z79.01 Long term (current) use of anticoagulants; Z79.899 Other long term (current) drug therapy; Z88.0 Allergy status to penicillin; Z88.1 Allergy status to other antibiotic agents; Z88.5 Allergy status to narcotic agent; Z88.8 Allergy status to other drugs, medicaments and biological substances; Z91.040 Latex allergy status; Z95.810 Presence of automatic (implantable) cardiac defibrillator
CPT/HCPCS: 92960; J2704

== ENCOUNTER 2022-12-23 12:00 | Outpatient (CLI) | payer MEDICARE | END 2022-12-23 12:01 | disposition home or self-care (01) | LOC: SCSRAD 12:00 | PROVIDERS: ATTEND Physician Assistant | DX: M54.10 Radiculopathy, site unspecified (principal); M47.816 Spondylosis without myelopathy or radiculopathy, lumbar region; M46.06 Spinal enthesopathy, lumbar region; R29.890 Loss of height | CPT/HCPCS: 72100 ==

== ENCOUNTER 2023-07-06 10:18 | Day surgery (SDC) | payer MEDICARE ==
[2023-07-05 09:57] VITALS: BMI 30.2
[2023-07-06 11:48] LABS: Hematocrit 36.5 % (36.0-47.0); Hemoglobin 11.8 g/dL (12.0-16.0); Mean Corpuscular HGB CONC 32.3 g/dL (32.0-36.0); Mean Corpuscular Hemoglobin 33.4 pg (27.0-31.0); Mean Corpuscular Volume 103.4 fl (78.0-98.0); Platelet Count 182 10x3/uL (130-400); RBC Distribution Width 13.1 % (11.5-14.5); Red Blood Cell (RBC) Count 3.53 mill/uL (4.20-5.40); White Blood Cell (WBC) Count 6.6 10x3/uL (4.8-10.8)
[2023-07-06 12:11] LABS: Anion Gap 14 mmol/L (10-20); BUN (Urea Nitrogen) 22 mg/dL (9.8-20.1); Calc. Creatinine Clearance 46 mL/min (70-130); Calcium 9.6 mg/dL (7.8-10.44); Carbon Dioxide 24 mmol/L (23-31); Chloride 108 mmol/L (98-107); Estimated GFR 45; Glucose 94 mg/dL (83-110); Potassium 3.9 mmol/L (3.5-5.1); Sodium 142 mmol/L (136-145)
[2023-07-06] MEDS ORDERED: LevoFLOXacin 500 mg/D5W 100 ML BAG ONE (13:46)
[2023-07-06] MEDS ORDERED: Lidocaine 1% (PF) 30 ML VIAL ONE (13:46)
[2023-07-06] MEDS ORDERED: DOPamine 400 MG/D5W 250 ML 250 ML ONE (13:48)
[2023-07-06] MEDS ORDERED: Clindamycin/D5W 600 mg/50 ml Premix Bag ONE ×2 (13:59→14:23)
[2023-07-06] MEDS ORDERED: Gentamicin 80 MG/2 ML VIAL ONE (14:29)
[2023-07-06] MEDS ORDERED: Lidocaine 1% PF 5 ML VIAL ONE (14:40)
[2023-07-06] MEDS ORDERED: Dexamethasone 20 MG/5 ML VIAL ONE (14:40)
[2023-07-06] MEDS ORDERED: Succinylcholine 200 MG/10 ml SYRINGE FS ONE (14:40)
[2023-07-06] MEDS ORDERED: PROPOFOL 200 MG/20 ML VIAL ONE (14:40)
[2023-07-06] MEDS ORDERED: Rocuronium Bromide 10 MG/ML (10ML VIAL) ONE (14:40)
[2023-07-06] MEDS ORDERED: PHENYLEPHRINE-NS 100 MCG/ML 10 ML SYRINGE ONE (14:40)
[2023-07-06] MEDS ORDERED: Ondansetron PF 4 MG/2 ML Vial ONE (14:40)
[2023-07-06] MEDS ORDERED: fentaNYL 50 mcg/mL 1 mL Vial ONE (15:33)
[2023-07-06] MEDS ORDERED: Acetaminophen 325 MG TAB ONE (18:52)
[2023-07-06] MEDS ORDERED: Doxycycline 100 MG CAP PO SCH (21:00)
== END 2023-07-06 22:10 | disposition home or self-care (01) ==
LOC: SDC 10:18
PROVIDERS: ATTEND Internal Medicine Cardiovascular Disease
PROC: 02H73KZ Insertion of Defibrillator Lead into Left Atrium, Percutaneous Approach (ICD-10-PCS; principal; 2023-07-06)
DX: I48.0 Paroxysmal atrial fibrillation (principal); I42.2 Other hypertrophic cardiomyopathy; I44.7 Left bundle-branch block, unspecified; K90.0 Celiac disease; K58.9 Irritable bowel syndrome, unspecified; I08.0 Rheumatic disorders of both mitral and aortic valves; I48.19 Other persistent atrial fibrillation; F32.A Depression, unspecified; I10 Essential (primary) hypertension; E78.5 Hyperlipidemia, unspecified; I49.5 Sick sinus syndrome; Z95.810 Presence of automatic (implantable) cardiac defibrillator; Z88.5 Allergy status to narcotic agent; Z88.1 Allergy status to other antibiotic agents; Z91.048 Other nonmedicinal substance allergy status; Z88.0 Allergy status to penicillin; Z91.010 Allergy to peanuts; Z88.8 Allergy status to other drugs, medicaments and biological substances; Z79.899 Other long term (current) drug therapy; Z98.890 Other specified postprocedural states
CPT/HCPCS: 33225; 33241; 33249; 71045; 80048; 85027; 93005; 93613; 93650; C1760; C1882; C1894; C1900; J3010; J1100; J1265; J1580; J1956; J2001; J2405; J2704; J3490

== ENCOUNTER 2023-10-25 15:26 | Emergency (ER) | payer MEDICARE ==
[2023-10-25 17:44] LABS: #Basophils 0.1 thou/uL (0.0-0.2); #Eosinphils 0.3 thou/uL (0.0-0.7); #Monocytes 0.6 thou/uL (0.11-0.59); #Neutrophils 4.9 thou/uL (1.40-6.50); %Basophils 0.7 % (0.0-1.0); %Eosinophils 4.7 % (0.0-10.0); %Lymphocytes 15.3 % (21.0-51.0); %Monocytes 8.9 % (0.0-10.0); %Neutrophils 70.1 % (42.0-75.0); Hemoglobin 12.5 g/dL (12.0-16.0); Mean Corpuscular HGB CONC 32.9 g/dL (32.0-36.0); Mean Corpuscular Hemoglobin 32.9 pg (27.0-31.0); Mean Platelet Volume 9.6 fL (7.4-10.4); Platelet Count 175 10x3/uL (130-400); RBC Distribution Width 13.7 % (11.5-14.5); White Blood Cell (WBC) Count 7.1 10x3/uL (4.8-10.8)
[2023-10-25 17:45] LABS: Bacteria/HPF None Seen HPF (None Seen); CAUTI Indications for Culture Alt mental st,lethar; RBC/HPF 0-3 HPF (0-3); Squamous Epithelial 0-3 HPF (0-3); WBC/HPF None Seen HPF (0-3)
[2023-10-25 17:47] LABS: Urine Culture Reflex No No
[2023-10-25 17:48] LABS: Bilirubin Negative (Negative); Blood, Urine Moderate (Negative); Glucose, Urine (Dipstick) Negative (Negative); Ketone, Urine Negative (Negative); Leukocyte Negative (Negative); Nitrite Negative (Negative); Protein, Urine (Dipstick) Negative (Neg-Trace); Urobilinogen 0.2 mg/dL (Less than 2)
[2023-10-25 17:52] LABS: Clarity Clear (Clear)
[2023-10-25 17:53] LABS: Specific Gravity, Urine 1.005 (1.005-1.030)
[2023-10-25 18:01] LABS: CK (CPK) 130 U/L (29-168); Magnesium 2.1 mg/dL (1.6-2.6)
[2023-10-25 18:02] LABS: ALT (SGPT) 12 U/L (8-55); AST (SGOT) 31 U/L (5-34); Albumin 4.8 g/dL (3.4-4.8); Alkaline Phosphatase 63 U/L (40-110); Anion Gap 17 mmol/L (10-20); BUN (Urea Nitrogen) 19 mg/dL (9.8-20.1); Bilirubin, Total 0.7 mg/dL (0.2-1.2); Calc. Creatinine Clearance 0 mL/min (70-130); Calcium 10.2 mg/dL (7.8-10.44); Carbon Dioxide 23 mmol/L (23-31); Chloride 107 mmol/L (98-107); Estimated GFR 44; Globulin 2.3 g/dL (2.4-3.5); Glucose 101 mg/dL (83-110); Potassium 4.1 mmol/L (3.5-5.1); Protein, Total 7.1 g/dL (5.8-8.1); Sodium 143 mmol/L (136-145)
[2023-10-25] MEDS ORDERED: Furosemide 40 MG (4 mL) VIAL ONE (21:17)
== END 2023-10-25 21:35 | disposition home or self-care (01) ==
LOC: ERS 15:26
DX: I11.0 Hypertensive heart disease with heart failure (principal); I50.9 Heart failure, unspecified; K21.9 Gastro-esophageal reflux disease without esophagitis; I25.10 Atherosclerotic heart disease of native coronary artery without angina pectoris; Z95.0 Presence of cardiac pacemaker; Z79.899 Other long term (current) drug therapy; Z87.891 Personal history of nicotine dependence
CPT/HCPCS: 36415; 70450; 71045; 80053; 81001; 82140; 82550; 83605; 83735; 83880; 84484; 85025; 87040; 87086; 93005; 96374; J1940

== ENCOUNTER 2024-03-01 07:01 | Emergency (ER) | payer MEDICARE ==
[2024-03-01] MEDS ORDERED: Ketorolac Tromethamine 30 MG (1 mL) VIAL ONE (07:32)
== END 2024-03-01 08:00 | disposition home or self-care (01) ==
LOC: ERS 07:01
DX: S16.1XXA Strain of muscle, fascia and tendon at neck level, initial encounter (principal); K21.9 Gastro-esophageal reflux disease without esophagitis; I10 Essential (primary) hypertension; X58.XXXA Exposure to other specified factors, initial encounter; Z87.891 Personal history of nicotine dependence; Z79.899 Other long term (current) drug therapy
CPT/HCPCS: 96372; J1885

== ENCOUNTER 2024-07-17 08:28 | Emergency (ER) | payer MEDICARE ==
[2024-07-17] MEDS ORDERED: Acetaminophen 500 MG TAB ONE (09:09)
[2024-07-17] MEDS ORDERED: Ondansetron ODT 4 MG TAB ONE (09:09)
[2024-07-17 09:26] LABS: #Basophils 0.06 10x3/uL (0.0-0.2); %Basophils 0.8 % (0.0-1.0); %Eosinophils 2.8 % (0.0-10.0); %Lymphocytes 12.6 % (21.0-51.0); %Monocytes 7.6 % (0.0-10.0); %Neutrophils 75.8 % (42.0-75.0); Hematocrit 40.8 % (36.0-47.0); Hemoglobin 13.5 g/dL (12.0-16.0); Mean Corpuscular HGB CONC 33.1 g/dL (32.0-36.0); Mean Corpuscular Hemoglobin 32.9 pg (27.0-31.0); Mean Corpuscular Volume 99.5 fL (78.0-98.0); Mean Platelet Volume 9.4 fL (7.4-10.4); Platelet Count 231 10x3/uL (130-400); RBC Distribution Width 12.8 % (11.5-14.5)
[2024-07-17 09:57] LABS: Bacteria/HPF None Seen HPF (None Seen); CAUTI Indications for Culture Dysuria,urgency,freq; RBC/HPF 0-3 HPF (0-3); Squamous Epithelial None Seen HPF (0-3); WBC/HPF 0-3 HPF (0-3)
[2024-07-17 09:58] LABS: ALT (SGPT) 17 U/L (8-55); AST (SGOT) 39 U/L (5-34); Albumin 4.9 g/dL (3.4-4.8); Alkaline Phosphatase 56 U/L (40-110); Anion Gap 15 mmol/L (10-20); BUN (Urea Nitrogen) 26 mg/dL (9.8-20.1); Bilirubin, Total 0.8 mg/dL (0.2-1.2); Calc. Creatinine Clearance 0 mL/min (70-130); Calcium 10.2 mg/dL (7.8-10.44); Carbon Dioxide 25 mmol/L (23-31); Chloride 105 mmol/L (98-107); Estimated GFR 43; Globulin 3.1 g/dL (2.4-3.5); Glucose 98 mg/dL (83-110); Potassium 4.3 mmol/L (3.5-5.1); Sodium 141 mmol/L (136-145)
[2024-07-17 09:59] LABS: Urine Culture Reflex No No
[2024-07-17 10:05] LABS: Bilirubin Negative (Negative); Blood, Urine Small (Negative); Glucose, Urine (Dipstick) Negative (Negative); Ketone, Urine Negative (Negative); Leukocyte Negative (Negative); Nitrite Negative (Negative); Protein, Urine (Dipstick) Negative (Neg-Trace); Urobilinogen 0.2 mg/dL (Less than 2)
[2024-07-17 10:07] LABS: Clarity Clear (Clear)
== END 2024-07-17 11:18 | disposition home or self-care (01) ==
LOC: ERS 08:28
DX: R53.81 Other malaise (principal); N17.9 Acute kidney failure, unspecified; R11.0 Nausea; Z79.01 Long term (current) use of anticoagulants; Z79.899 Other long term (current) drug therapy; Z87.891 Personal history of nicotine dependence
CPT/HCPCS: 80053; 81001; 85025; 87428; 93005; Q0162; 36415; 99284

== ENCOUNTER 2025-02-11 11:06 | Emergency (ER) | payer MEDICARE ==
[2025-02-11 12:15] LABS: #Basophils 0.06 10x3/uL (0.0-0.2); #Eosinophils 0.17 10x3/uL (0.0-0.7); #Monocytes 0.59 10x3/uL (0.11-0.59); #Neutrophils 4.98 10x3/uL (1.40-6.50); %Basophils 0.9 % (0.0-1.0); %Eosinophils 2.5 % (0.0-10.0); %Lymphocytes 14.7 % (21.0-51.0); %Monocytes 8.7 % (0.0-10.0); %Neutrophils 72.9 % (42.0-75.0); Hemoglobin 12.2 g/dL (12.0-16.0); Mean Corpuscular Hemoglobin 32.4 pg (27.0-31.0); Mean Corpuscular Volume 98.4 fL (78.0-98.0); Mean Platelet Volume 9.6 fL (7.4-10.4); Platelet Count 177 10x3/uL (130-400); Red Blood Cell (RBC) Count 3.76 mill/uL (4.20-5.40); White Blood Cell (WBC) Count 6.82 10x3/uL (4.8-10.8)
[2025-02-11 12:44] LABS: Troponin I 0.019 ng/mL (< 0.028)
[2025-02-11 12:47] LABS: Acetaminophen Less than 10 mcg/mL (Less than 10); Alcohol Less than 10.0 mg/dL (Less than 10); Magnesium 1.9 mg/dL (1.6-2.6); Salicylate Less than 8.0 mg/dL (Less than 8.0)
[2025-02-11 13:07] LABS: Bilirubin Negative (Negative); Blood, Urine 1+ (Negative); Clarity Clear (Clear); Glucose, Urine (Dipstick) Normal (Negative); Ketone, Urine Negative (Negative); Leukocyte Negative Leu/uL (Negative); Nitrite Negative (Negative); Protein, Urine (Dipstick) Negative (Neg-Trace); Specific Gravity, Urine 1.004 (1.002-1.036); Urobilinogen Normal mg/dL (Less than 2); pH, Urine 5.5 (5.0-9.0)
[2025-02-11 13:08] LABS: Free T4 (Free Thyroxine) 0.96 ng/dL (0.70-1.48)
[2025-02-11 13:16] LABS: Amphetamine Negative (Negative); Barbiturates Screen Negative (Negative); Benzodiazepine Screen Negative (Negative); Cocaine Metabolite Screen Negative (Negative); Methadone Negative (Negative); Methamphetamine Negative (Negative); Opiate Screen Negative (Negative); Oxycodone Screen Negative (Negative); Phencyclidine (PCP) Negative (Negative); THC/Cannabinoid Screen Negative (Negative); Tricyclic Screen Negative (Negative)
[2025-02-11 13:20] LABS: CAUTI Indications for Culture Acute Hematuria; RBC/HPF None Seen HPF (0-3)
== END 2025-02-11 14:50 | disposition home or self-care (01) ==
LOC: ERS 11:06
DX: R44.0 Auditory hallucinations (principal); F05 Delirium due to known physiological condition; I10 Essential (primary) hypertension; I25.10 Atherosclerotic heart disease of native coronary artery without angina pectoris; Z79.899 Other long term (current) drug therapy; Z87.891 Personal history of nicotine dependence
CPT/HCPCS: 36415; 70450; 71045; 80306; 80307; 81001; 82550; 83735; 83880; 84439; 84443; 84484; 85025; 93005

== ENCOUNTER 2025-05-04 13:02 | Inpatient (IN) | payer MEDICARE ==
[2025-05-04 13:38] LABS: #Basophils 0.04 10x3/uL (0.0-0.2); #Eosinophils 0.06 10x3/uL (0.0-0.7); #Monocytes 1.00 10x3/uL (0.11-0.59); #Neutrophils 6.34 10x3/uL (1.40-6.50); %Basophils 0.5 % (0.0-1.0); %Eosinophils 0.7 % (0.0-10.0); %Lymphocytes 11.0 % (21.0-51.0); %Monocytes 11.9 % (0.0-10.0); %Neutrophils 75.7 % (42.0-75.0); Hematocrit 35.4 % (36.0-47.0); Hemoglobin 11.4 g/dL (12.0-16.0); Mean Corpuscular Hemoglobin 32.6 pg (27.0-31.0); Mean Corpuscular Volume 101.1 fL (78.0-98.0); Platelet Count 179 10x3/uL (130-400); Red Blood Cell (RBC) Count 3.50 mill/uL (4.20-5.40); White Blood Cell (WBC) Count 8.38 10x3/uL (4.8-10.8)
[2025-05-04 13:54] LABS: ALT (SGPT) 13 U/L (Less than 34); AST (SGOT) 35 U/L (11-34); Albumin 4.0 g/dL (3.1-4.5); Alkaline Phosphatase 55 U/L (40-110); Anion Gap 16 mmol/L (10-20); BUN (Urea Nitrogen) 19 mg/dL (9.8-20.1); Bilirubin, Total 0.7 mg/dL (0.3-1.2); Calc. Creatinine Clearance 0 mL/min (70-130); Calcium 10.0 mg/dL (7.8-10.44); Carbon Dioxide 23 mmol/L (23-31); Chloride 105 mmol/L (98-107); Globulin 3.3 g/dL (2.4-3.5); Glucose 98 mg/dL (83-110); Potassium 4.0 mmol/L (3.5-5.1); Sodium 140 mmol/L (136-145)
[2025-05-04] MEDS ORDERED: Vancomycin 1 GM/200 ML (PREMIX FOIL) BAG ONE (14:05)
[2025-05-04] MEDS ORDERED: diphenhydrAMINE 50 MG/ML VIAL ONE (14:48)
[2025-05-04] MEDS ORDERED: PROPOFOL 20 ML ONE (16:04)
[2025-05-04] MEDS ORDERED: Ondansetron PF 4 MG/2 ML Vial ONE (16:05)
[2025-05-04] MEDS ORDERED: Lidocaine 1% PF 5 ML VIAL ONE (16:05)
[2025-05-04] MEDS ORDERED: SUCCINYLCHOLINE/SOD CL,ISO/PF 200 MG/10 ML SYRINGE FS ONE (16:05)
[2025-05-04] MEDS ORDERED: Lidocaine 1% (PF) 30 ML VIAL ONE (16:55)
[2025-05-04 18:46] VITALS: BMI 31.6
[2025-05-04] MEDS: Clindamycin/D5W 900 MG in Premix 1 BAG IVPB SCH (19:59)
[2025-05-04] MEDS: Acetaminophen 325 MG TAB PO SCH (20:04)
[2025-05-04] MEDS: Ketorolac Tromethamine 30 MG (1 mL) VIAL IVP SCH (21:43)
[2025-05-04] MEDS: Pantoprazole 40 MG DR.TAB PO SCH (21:43)
[2025-05-05] MEDS ORDERED: HYDROcodone/Acetaminophen 5/325 mg Tablet PO PRN (00:53)
[2025-05-05] MEDS ORDERED: Acetaminophen 325 MG TAB PO PRN (00:53)
[2025-05-05 05:12] LABS: ALT (SGPT) 11 U/L (Less than 34); AST (SGOT) 32 U/L (11-34); Albumin 3.5 g/dL (3.1-4.5); Alkaline Phosphatase 49 U/L (40-110); Anion Gap 13 mmol/L (10-20); BUN (Urea Nitrogen) 22 mg/dL (9.8-20.1); Bilirubin, Total 0.9 mg/dL (0.3-1.2); Calc. Creatinine Clearance 53 mL/min (70-130); Calcium 9.1 mg/dL (7.8-10.44); Carbon Dioxide 24 mmol/L (23-31); Chloride 107 mmol/L (98-107); Globulin 2.4 g/dL (2.4-3.5); Glucose 104 mg/dL (83-110); Potassium 4.0 mmol/L (3.5-5.1); Sodium 140 mmol/L (136-145)
[2025-05-05 05:35] LABS: #Basophils 0.04 10x3/uL (0.0-0.2); #Eosinophils 0.07 10x3/uL (0.0-0.7); #Monocytes 0.94 10x3/uL (0.11-0.59); #Neutrophils 5.42 10x3/uL (1.40-6.50); %Basophils 0.6 % (0.0-1.0); %Eosinophils 1.0 % (0.0-10.0); %Lymphocytes 10.0 % (21.0-51.0); %Monocytes 13.0 % (0.0-10.0); %Neutrophils 75.1 % (42.0-75.0); Hematocrit 31.6 % (36.0-47.0); Hemoglobin 10.1 g/dL (12.0-16.0); Mean Corpuscular Hemoglobin 31.9 pg (27.0-31.0); Mean Corpuscular Volume 99.7 fL (78.0-98.0); Platelet Count 161 10x3/uL (130-400); Red Blood Cell (RBC) Count 3.17 mill/uL (4.20-5.40); White Blood Cell (WBC) Count 7.21 10x3/uL (4.8-10.8)
[2025-05-05] MEDS: Losartan 25 MG TAB PO SCH (08:54)
[2025-05-05] MEDS: Rosuvastatin 20 MG TAB PO SCH (08:55)
[2025-05-05] MEDS: Pantoprazole 40 MG DR.TAB PO SCH (08:56)
[2025-05-05] MEDS: Ketorolac Tromethamine 30 MG (1 mL) VIAL IVP SCH (12:37)
[2025-05-05] MEDS: Amiodarone 200 MG TAB PO SCH (21:32)
[2025-05-05] MEDS: Metoprolol Succinate XL 50 MG ER.TAB PO SCH (21:32)
[2025-05-06] MEDS: Furosemide 20 MG TAB PO SCH (08:58)
[2025-05-06 11:17] VITALS: TEMP 97.6
[2025-05-06 11:29] VITALS: BP 166/73
== END 2025-05-06 12:05 | disposition home or self-care (01) | DRG 603 ==
LOC: ERS 13:02 → SDC 16:37 → 2NO 18:30
PROVIDERS: ADMIT Internal Medicine; ATTEND Orthopaedic Surgery
PROC: 0J9J0ZZ Drainage of Right Hand Subcutaneous Tissue and Fascia, Open Approach (ICD-10-PCS; principal; 2025-05-04)
PROC: 3E03329 Introduction of Other Anti-infective into Peripheral Vein, Percutaneous Approach (ICD-10-PCS; 2025-05-04)
DX: L02.511 Cutaneous abscess of right hand (principal); I42.2 Other hypertrophic cardiomyopathy; M65.841 Other synovitis and tenosynovitis, right hand; I48.91 Unspecified atrial fibrillation; K21.9 Gastro-esophageal reflux disease without esophagitis; I10 Essential (primary) hypertension; Z88.8 Allergy status to other drugs, medicaments and biological substances; Z88.0 Allergy status to penicillin; Z88.5 Allergy status to narcotic agent; Z88.1 Allergy status to other antibiotic agents; Z91.011 Allergy to milk products; Z91.040 Latex allergy status; Z95.0 Presence of cardiac pacemaker; Z90.49 Acquired absence of other specified parts of digestive tract; Z98.890 Other specified postprocedural states; Z79.899 Other long term (current) drug therapy
CPT/HCPCS: 36415; 36416; 80053; 85025; 86141; 87070; 87077; 87186; 87205; 96365; 96375; 97139; J0665; J1200; J1885; J2405; J2704; J3010; J3372; J3373; J3490